=== PATIENT | male | born 1995 | race Two or more races ===

== ENCOUNTER 2020-12-25 13:38 | Emergency (ER) | payer OTHER ==
[~2020-12-25] VITALS: Ht 175.3 cm; Wt 108.7 kg
[2020-12-25 14:01] LABS: BASOPHILS % (AUTO) 0.5 % (0.0-2.0); EOSINOPHILS % (AUTO) 3.4 % (1.0-6.0); HEMATOCRIT 45.3 % (41-53); HEMOGLOBIN 14.8 g/dL (13.5-17.5); LYMPHOCYTES # (AUTO) 2.7 K/uL (1.0-4.8); LYMPHOCYTES % (AUTO) 37.9 % (22.0-44.0); MEAN CORPUSCULAR HEMOGLOBIN 27.5 pg (26.0-34.0); MEAN CORPUSCULAR HGB CONC 32.6 G/dL (31.0-37.0); MEAN CORPUSCULAR VOLUME 84 fL (80-100); MONOCYTES # (AUTO) 0.6 K/uL (0.1-1.0); MONOCYTES % (AUTO) 7.9 % (2.0-9.0); NEUTROPHILS # (AUTO) 3.5 K/uL (1.8-7.7); NEUTROPHILS % (AUTO) 50.3 % (40.0-70.0); PLATELET COUNT (AUTO) 193 K/uL (150-450); RED BLOOD CELL COUNT(AUTO) 5.38 MIL/uL (4.50-5.90); RED CELL DISTRIBUTION WIDTH 13.7 % (11.5-14.5)
[2020-12-25 14:10] LABS: ANION GAP 8 mmol/L (8-16); CARBON DIOXIDE 26 mmol/L (22-29); CHLORIDE 105 mmol/L (98-107); CREATININE 0.99 mg/dL (0.60-1.30); GLOMERULAR FILTR. RATE CALC > 60 mL/min (>60); GLUCOSE,RANDOM 116 mg/dL (70-110); POTASSIUM 3.8 mmol/L (3.5-5.1); SODIUM SERUM 139 mmol/L (136-145); UREA NITROGEN, BLOOD 11 mg/dL (7-18)
[2020-12-25 14:18] LABS: LACTIC ACID 0.9 mmol/L (0.4-2.0)
[2020-12-25 14:19] LABS: AMMONIA 18 umol/L (11-32)
[2020-12-25 14:22] LABS: TROPONIN I < 0.02 ng/mL (0.00-0.05)
[2020-12-25 14:35] LABS: ALANINE AMINOTRANSFERASE 50 U/L (12-78); ALBUMIN 4.1 g/dL (3.4-5.0); ALKALINE PHOSPHATASE 85 U/L (46-116); ASPARTATE AMINOTRANSFERASE 25 U/L (15-37); BILIRUBIN,TOTAL 0.2 mg/dL (0.1-1.0); CREATINE KINASE, TOTAL ONLY 85 U/L (39-308); TOTAL PROTEIN, SERUM 7.2 g/dL (6.4-8.2)
[2020-12-25 14:51] LABS: APPEARANCE,URINE CLEAR (CLEAR); BILIRUBIN,URINE NEGATIVE (NEGATIVE); GLUCOSE, URINE (UA) NEGATIVE (NEGATIVE); KETONES,URINE NEGATIVE (NEGATIVE); LEUKOCYTE ESTERASE ,URINE NEGATIVE (NEGATIVE); NITRATE,URINE NEGATIVE (NEGATIVE); OCCULT BLOOD,URINE NEGATIVE (NEGATIVE); PH,URINE 6.5 (5.0-8.0); PROTEIN,URINE NEGATIVE (NEGATIVE)
[2020-12-25 14:56] LABS: AMPHET/METH SCREEN,URINE NEGATIVE (NEGATIVE); BARBITURATE SCREEN, URINE NEGATIVE (NEGATIVE); BENZODIAZEPINES SCREEN,URINE NEGATIVE (NEGATIVE); CANNABINOID SCREEN,URINE POSITIVE (NEGATIVE); COCAINE SCREEN,URINE POSITIVE (NEGATIVE); METHADONE SCREEN, URINE NEGATIVE (NEGATIVE); OPIATE SCREEN,URINE NEGATIVE (NEGATIVE)
[2020-12-25 14:57] LABS: PHENCYCLIDINE SCREEN,URINE NEGATIVE (NEGATIVE)
[2020-12-25 16:44] VITALS: BP 140/68
== END 2020-12-25 16:46 | disposition home or self-care (01) ==
LOC: EMS 13:40
DX: H53.8 Other visual disturbances (principal); F17.210 Nicotine dependence, cigarettes, uncomplicated; F14.90 Cocaine use, unspecified, uncomplicated
CPT/HCPCS: 36415; 70450; 71045; 80053; 80307; 81003; 82140; 82550; 83605; 84484; 85025; 93005; 99285; G0480

== ENCOUNTER 2025-06-18 21:18 | Emergency (ER) | payer MEDICAID, OTHER ==
[~2025-06-18] VITALS: Ht 180.3 cm; Wt 104.0 kg
[2025-06-18 21:55] VITALS: TEMP 98.2
[2025-06-18] MEDS ORDERED: METO5TAB95 PO (23:49)
[2025-06-18] MEDS: ACETAMINOPHEN 500 MG TABLET PO ONE (23:54)
[2025-06-18] MEDS: METOCLOPRAMIDE HCL 10 MG TABLET PO ONE (23:54)
[2025-06-19] VITALS: BP 121/63; PULSE 75; RESP 18; O2SAT 96
== END 2025-06-19 00:22 | disposition home or self-care (01) ==
LOC: EMS 21:18
DX: S06.0X0A Concussion without loss of consciousness, initial encounter (principal); F17.210 Nicotine dependence, cigarettes, uncomplicated; F14.90 Cocaine use, unspecified, uncomplicated; W22.01XA Walked into wall, initial encounter; Y93.89 Activity, other specified; Y92.89 Other specified places as the place of occurrence of the external cause; Y99.8 Other external cause status
CPT/HCPCS: 99283